=== PATIENT | male | born 1965 ===

== ENCOUNTER 2020-07-18 15:58 | Outpatient (CLI) | payer OTHER | END 2020-07-18 18:00 | disposition home or self-care (01) | LOC: PPH VACUNA 15:58 | DX: Z23 Encounter for immunization (principal) ==

== ENCOUNTER 2021-03-04 11:26 | Outpatient (CLI) | payer OTHER | END 2021-03-04 15:00 | disposition home or self-care (01) | LOC: LAB 11:26 | DX: Z03.818 Encounter for observation for suspected exposure to other biological agents ruled out (principal) ==

== ENCOUNTER 2023-09-04 07:26 | Outpatient (CLI) | payer OTHER | END 2023-09-04 13:52 | disposition home or self-care (01) | LOC: RAD 07:26 | DX: R05.9 Cough, unspecified (principal) ==